=== PATIENT | male | born 1945 | race Caucasian/White ===

== ENCOUNTER 2021-07-11 16:33 | Emergency (ER) | payer MEDICARE ==
[~2021-07-11 16:33] MED LIST: FLOMAX0.4 MG PO; NORCO 5-325 TA1 EACH PO; ZOFRAN4 MG PO
[2021-07-11 18:37] LABS: HEMOGLOBIN 13.7 gm/dl (14.0-17.5); RED BLOOD COUNT 4.41 M/UL (4.20-5.50); WHITE BLOOD COUNT 13.7 K/UL (4.5-11.0)
[2021-07-11 18:59] LABS: BUN/CREATININE RATIO 19 (0-10)
[2021-07-11] MEDS ORDERED: ZOFRAN4 MG PO (22:25)
== END 2021-07-11 23:05 | disposition home or self-care (01) ==
LOC: ER1 16:33
PROVIDERS: Physician Assistant
DX: R19.7 Diarrhea, unspecified (principal); R50.9 Fever, unspecified; Z20.822 Contact with and (suspected) exposure to COVID-19; R11.2 Nausea with vomiting, unspecified; I10 Essential (primary) hypertension; K21.9 Gastro-esophageal reflux disease without esophagitis; E11.9 Type 2 diabetes mellitus without complications; Z79.84 Long term (current) use of oral hypoglycemic drugs
CPT/HCPCS: 36600; 71045; 80053; 81001; 82550; 82553; 82803; 83605; 83615; 83690; 83874; 84484; 85025; 86140; 87040; 87086; 93005; 96374; 96375; 99284; J2270; J2405; Q9967; U0002

== ENCOUNTER 2022-03-18 11:08 | Emergency (ER) | payer OTHER, MEDICARE | END 2022-03-18 15:55 | disposition home or self-care (01) | LOC: ER1 11:08 | DX: S16.1XXA Strain of muscle, fascia and tendon at neck level, initial encounter (principal); S29.012A Strain of muscle and tendon of back wall of thorax, initial encounter; S39.012A Strain of muscle, fascia and tendon of lower back, initial encounter; S20.211A Contusion of right front wall of thorax, initial encounter; S60.011A Contusion of right thumb without damage to nail, initial encounter; S40.011A Contusion of right shoulder, initial encounter; R51.9 Headache, unspecified; W01.0XXA Fall on same level from slipping, tripping and stumbling without subsequent striking against object, initial encounter | CPT/HCPCS: 70450; 71111; 72125; 72128; 72131; 73030; 73140; 99284 ==